=== PATIENT | female | born 1960 | race Caucasian/White ===

== ENCOUNTER 2021-09-20 12:30 | Emergency (ER) | payer MEDICAID ==
[~2021-09-20] VITALS: Ht 154.9 cm; Wt 60.8 kg
[2021-09-20] MEDS ORDERED: FAMOTIDINE 20 MG/2 ML VIAL IVP ONE (13:30)
[2021-09-20] MEDS ORDERED: ONDANSETRON 4 MG/2 ML VIAL IVP ONE (13:30)
[2021-09-20] MEDS ORDERED: NACL 0.9% 1,000 ML IV ONE (13:30)
--- NOTE | 2021-09-20 13:50 | NUR ---
lisette swab done. handed to lab.
--- NOTE | 2021-09-20 13:52 | NUR ---
61 yo f c/o postprandial n/v/d x 1 week. Pt also reports abdominal pain upon oral intake. also with weakness, dizziness and hematemesis. Pt denies cough, fevers, chest pain, shortness of breath, bloody stool, urinary symptoms. in ed, vss. [id number]. no active vomiting at this time. abdomen soft, nontender with active bs. ermd made aware of pt status. pmh: dm, s/p hysterectomy meds: unrecalled nka
[2021-09-20 14:02] LABS: BASOPHILS % (AUTO) 0.7 % (0.0-2.0); EOSINOPHILS % (AUTO) 0.2 % (0.0-4.0); HEMOGLOBIN 14.6 g/dL (12.0-16.0); LYMPHOCYTES # (AUTO) 1.9 K/uL (2.5-16.5); LYMPHOCYTES % (AUTO) 41.5 % (20.5-51.1); MEAN CORPUSCULAR HEMOGLOBIN 33 pg (27-31); MEAN CORPUSCULAR HGB CONC 35 g/dL (33-37); MEAN CORPUSCULAR VOLUME 95.4 fL (80-94); MONOCYTES # (AUTO) 0.4 K/uL (0.8-1.0); MONOCYTES % (AUTO) 8.3 % (1.7-9.3); NEUTROPHILS # (AUTO) 2.2 K/uL (1.8-7.7); NEUTROPHILS % (AUTO) 49.3 % (42.2-75.2); PLATELET COUNT (AUTO) 293 K/uL (140-450); RED CELL DISTRIBUTION WIDTH 13.7 % (11.6-13.7); WHITE BLOOD COUNT (AUTO) 4.5 K/uL (4.8-10.8)
--- NOTE | 2021-09-20 14:05 | NUR ---
pt unable to provide urine specimen at this time. specimen cup left at bedside.
--- NOTE | 2021-09-20 14:17 | NUR ---
PT AMBULATED TO RESTROOM AT THIS TIME. URINE SPECIMEN HANDED TO WESTLEY PARSONS.
[2021-09-20 14:26] LABS: ALBUMIN 3.4 g/dL (3.4-5.0); ANION GAP 14.1 (8-16); CARBON DIOXIDE 26.1 mmol/L (21-32); CREATININE 0.8 mg/dL (0.6-1.3); POTASSIUM 3.2 mmol/L (3.5-5.1); TOTAL BILIRUBIN 0.4 mg/dL (0.0-1.0)
[2021-09-20] MEDS ORDERED: REGENERON ANTIBODY ER ORDER 1 EA MISC MC ONE (15:20)
[2021-09-20 15:35] VITALS: BP 166/73
[2021-09-20] MEDS ORDERED: NON-FORMULARY ITEM 1 EA in NACL 0.9% 100 ML IV ONE (16:00)
[2021-09-20 16:25] LABS: APPEARANCE,URINE CLEAR (CLEAR); BILIRUBIN,URINE NEGATIVE (NEGATIVE); BLOOD, URINE 1+ (NEGATIVE); COLOR,URINE YELLOW (YELLOW); LEUKOCYTE ESTERASE ,URINE NEGATIVE (NEGATIVE); NITRITE, URINE NEGATIVE (NEGATIVE); UGLUCOSE NEGATIVE (NEGATIVE)
[2021-09-20 16:57] LABS: WBC,URINE 0-5 /HPF (0-5)
[2021-09-20 19:11] VITALS: BP 160/85
--- NOTE | 2021-09-20 19:12 | NUR ---
Patient discharged with v/s stable. Written and verbal after care instructions given and explained. Patient verbalized understanding. Ambulatory with steady gait. All questions addressed prior to discharge. Advised to follow up with PMD.
== END 2021-09-20 19:10 | disposition home or self-care (01) ==
LOC: MED 12:30
DX: U07.1 COVID-19 (principal); R11.2 Nausea with vomiting, unspecified; R19.7 Diarrhea, unspecified; E11.9 Type 2 diabetes mellitus without complications; Z90.710 Acquired absence of both cervix and uterus
CPT/HCPCS: 36415; 71045; 80053; 81001; 83605; 83690; 84484; 85025; 87040; 87426; 93005; 96361; 96365; 96375; 99285; J2405; J3490; J7030; Q0092

== ENCOUNTER 2022-04-22 07:11 | Emergency (ER) | payer MEDICAID, OTHER ==
[~2022-04-22] VITALS: Ht 129.5 cm; Wt 64.9 kg
[2022-04-22 07:30] VITALS: BP 187/76
--- NOTE | 2022-04-22 08:14 | NUR ---
PT AMBULATORY TO RESTROOM
--- NOTE | 2022-04-22 08:29 | NUR ---
XRAY AT BEDSIDE
--- NOTE | 2022-04-22 08:42 | NUR ---
62YO FEMALE PT C/O THROBBING 3/10 L EYE PAIN XYESTERDAY. PT STATES INITIAL DISCOMFORT ALONG WITH EPISODES OF NUMBING IN L ARM AND L SIDE OF NECK, DENIES LOSS OF SENSATION. PT L EYE PRESENTS W/ REDDENED SCLERA, NO FOREIGN OBJECT VISIBLE. PERRLA X2. PT ABLE TO MOVE EYE W/ EASE AND DENIES CHANGE IN VISION .DENIES N/V/D, CHEST PAIN , SOB OR INJURY TO EYE OR BODY. PT AAOX4, NO VISIBLE DISTRESS. RSPIRATIONS EVEN AND UNLABORED. MAORI SPEAKING HX: HTN, DIABETES HYPOTHYROID, HDL NKA
[2022-04-22 09:05] LABS: BASOPHILS % (AUTO) 0.5 % (0.0-2.0); EOSINOPHILS # (AUTO) 0.1 K/uL (0-0.4); HEMATOCRIT 41.2 % (36-48); LYMPHOCYTES # (AUTO) 2.7 K/uL (2.5-16.5); LYMPHOCYTES % (AUTO) 31.6 % (20.5-51.1); MEAN CORPUSCULAR HEMOGLOBIN 32 pg (27-31); MEAN CORPUSCULAR HGB CONC 34 g/dL (33-37); MEAN CORPUSCULAR VOLUME 95.7 fL (80-94); MONOCYTES # (AUTO) 0.5 K/uL (0.8-1.0); MONOCYTES % (AUTO) 5.9 % (1.7-9.3); NEUTROPHILS # (AUTO) 5.2 K/uL (1.8-7.7); PLATELET COUNT (AUTO) 326 K/uL (140-450); RED CELL DISTRIBUTION WIDTH 13.3 % (11.6-13.7); WHITE BLOOD COUNT (AUTO) 8.6 K/uL (4.8-10.8)
[2022-04-22 09:24] LABS: ALBUMIN 3.6 g/dL (3.4-5.0); ANION GAP 12.8 (8-16); ASPARTATE AMINOTRANSFERASE 24 U/L (15-37); CARBON DIOXIDE 26.3 mmol/L (21-32); CHLORIDE 105 mmol/L (98-107); CREATININE 0.6 mg/dL (0.6-1.3); GFR ARICAN-AMERICAN 130 mL/min (>90); GLUCOSE 115 mg/dL (74-106); POTASSIUM 3.1 mmol/L (3.5-5.1); SODIUM SERUM 141 mmol/L (136-145); TOTAL BILIRUBIN 0.5 mg/dL (0.0-1.0); UREA NITROGEN, BLOOD 12 mg/dL (7-18)
[2022-04-22] MEDS ORDERED: ERYT5OIN58 OP (09:43)
[2022-04-22 09:52] VITALS: BP 180/73
--- NOTE | 2022-04-22 09:52 | NUR ---
Patient discharged with v/s stable. Written and verbal after care instructions FOR PARESTHESIA AND BACTERIAL CONJUSTIVITIS given and explained. Patient alert, oriented and verbalized understanding of instructions. Ambulatory with steady gait. All questions addressed prior to discharge. ID band removed. Patient advised to follow up with PMD. Rx of ERYTHROMYCIN given. Opportunity to ask questions provided and answered.
--- NOTE | 2022-04-22 10:08 | NUR ---
Chart checked and completed. The patient's care was reviewed and supervised by Dafne Ocasio RN.
== END 2022-04-22 09:52 | disposition home or self-care (01) ==
LOC: MED 07:11
DX: H10.9 Unspecified conjunctivitis (principal); R20.2 Paresthesia of skin; E11.9 Type 2 diabetes mellitus without complications
CPT/HCPCS: 36415; 71045; 80053; 84484; 85025; 93005; 99285

== ENCOUNTER 2022-08-09 08:22 | Emergency (ER) | payer OTHER ==
[~2022-08-09] VITALS: Ht 146.8 cm; Wt 57.7 kg
[~2022-08-09 08:22] MED LIST: ERYT5OIN58 OP
[2022-08-09 08:34] VITALS: BP 164/74
--- NOTE | 2022-08-09 08:39 | NUR ---
PT AMB TO BED 1.
[2022-08-09] MEDS ORDERED: NACL 0.9% 500 ML IV ONE (09:05)
--- NOTE | 2022-08-09 09:08 | NUR ---
SWABS COLLECTED AND WALKED TO LAB.
--- NOTE | 2022-08-09 09:30 | NUR ---
62F presents to ED with c/o left shoulder pain, headache, and dizziness x15 days. Pt reports an intermittent, pulsating like, 8/10 pain to head and left shoulder, dizziness with blurred vision. Pt reports history of DM, HTN, and hyperthyroid, noncompliant with meds for 1 year. Pt denies fevers, chills, N/V/D, denies trauma or injury to left shoulder. Pt reports taking Naprosyn this morning for pain with relief. Pt changed into gown, placed on bedside monitor.
--- NOTE | 2022-08-09 09:46 | NUR ---
Pt ambulated to restroom with steady gait.
[2022-08-09 09:52] LABS: BASOPHILS # (AUTO) 0.1 K/uL (0.00-0.22); BASOPHILS % (AUTO) 0.8 % (0.0-2.0); EOSINOPHILS # (AUTO) 0.1 K/uL (0-0.4); EOSINOPHILS % (AUTO) 1.5 % (0.0-4.0); HEMATOCRIT 45.3 % (36-48); HEMOGLOBIN 15.4 g/dL (12.0-16.0); LYMPHOCYTES # (AUTO) 2.5 K/uL (2.5-16.5); LYMPHOCYTES % (AUTO) 34.6 % (20.5-51.1); MEAN CORPUSCULAR HEMOGLOBIN 33 pg (27-31); MEAN CORPUSCULAR HGB CONC 34 g/dL (33-37); MEAN CORPUSCULAR VOLUME 96.4 fL (80-94); MONOCYTES # (AUTO) 0.4 K/uL (0.8-1.0); MONOCYTES % (AUTO) 5.8 % (1.7-9.3); NEUTROPHILS # (AUTO) 4.2 K/uL (1.8-7.7); NEUTROPHILS % (AUTO) 57.3 % (42.2-75.2); PLATELET COUNT (AUTO) 359 K/uL (140-450); RED CELL DISTRIBUTION WIDTH 13.6 % (11.6-13.7); WHITE BLOOD COUNT (AUTO) 7.3 K/uL (4.8-10.8)
[2022-08-09 10:35] LABS: ALBUMIN 3.7 g/dL (3.4-5.0); ANION GAP 10.6 (8-16); ASPARTATE AMINOTRANSFERASE 36 U/L (15-37); CARBON DIOXIDE 30.6 mmol/L (21-32); CHLORIDE 102 mmol/L (98-107); CREATININE 0.7 mg/dL (0.6-1.3); GFR ARICAN-AMERICAN 109 mL/min (>90); GLUCOSE 202 mg/dL (74-106); POTASSIUM 3.2 mmol/L (3.5-5.1); SODIUM SERUM 140 mmol/L (136-145); TOTAL BILIRUBIN 0.6 mg/dL (0.0-1.0); UREA NITROGEN, BLOOD 19 mg/dL (7-18)
[2022-08-09 10:40] LABS: APPEARANCE,URINE HAZY (CLEAR); BILIRUBIN,URINE NEGATIVE (NEGATIVE); BLOOD, URINE 2+ (NEGATIVE); COLOR,URINE YELLOW (YELLOW); LEUKOCYTE ESTERASE ,URINE 2+ (NEGATIVE); NITRITE, URINE POSITIVE (NEGATIVE); PH,URINE 6.5 (5.0-9.0); UGLUCOSE NEGATIVE (NEGATIVE)
[2022-08-09 10:57] LABS: RBC,URINE 0-5 /HPF (0-5); WBC,URINE 16-25 (MOD) /HPF (0-5)
[2022-08-09] MEDS ORDERED: CEPH-588 PO (11:17)
[2022-08-09] MEDS ORDERED: POTASSIUM CHLORIDE 10 MEQ TABER PO ONE (11:20)
[2022-08-09] MEDS ORDERED: cefTRIAXone 1,000 MG VIAL ONE (11:22)
--- NOTE | 2022-08-09 12:05 | NUR ---
IV removed, catheter intact and site benign. Applied folded 4x4 gauze and tape to stop bleeding.
[2022-08-09 12:12] VITALS: BP 158/81
== END 2022-08-09 12:08 | disposition home or self-care (01) ==
LOC: MED 08:22
DX: N39.0 Urinary tract infection, site not specified (principal); Z20.822 Contact with and (suspected) exposure to COVID-19; E87.6 Hypokalemia; I10 Essential (primary) hypertension
CPT/HCPCS: 36415; 71045; 73030; 80053; 81001; 84484; 85025; 87086; 87426; 87804; 93005; 96365; 99285; J0696; J7030

== ENCOUNTER 2024-01-13 09:26 | Emergency (ER) | payer OTHER ==
[~2024-01-13] VITALS: Ht 142.2 cm; Wt 58.1 kg
[~2024-01-13 09:26] MED LIST changes: +CEPH-588 PO
[2024-01-13 09:42] VITALS: BP 183/79; PULSE 65; RESP 16; TEMP 97.6; O2SAT 98
[2024-01-13 10:41] VITALS: BP 189/81; PULSE 60; RESP 14; TEMP 97.6
[2024-01-13 10:44] VITALS: O2SAT 98
[2024-01-13 10:44] LABS: ALANINE AMINOTRANSFERASE 43 U/L (12-78); ALBUMIN 4.2 g/dL (3.4-5.0); ALKALINE PHOSPHATASE 137 U/L (50-136); ANION GAP 11.4 (8-16); ASPARTATE AMINOTRANSFERASE 23 U/L (15-37); CHLORIDE 104 mmol/L (98-107); CREATININE 0.6 mg/dL (0.6-1.3); GFR ARICAN-AMERICAN 129 mL/min (>90); GFR NON ARICAN-AMERICAN 107 mL/min (>90); GLUCOSE 157 mg/dL (74-106); POTASSIUM 3.4 mmol/L (3.5-5.1); SODIUM SERUM 142 mmol/L (136-145); TOTAL BILIRUBIN 0.5 mg/dL (0.0-1.0); TOTAL PROTEIN, SERUM 7.6 g/dL (6.4-8.2); UREA NITROGEN, BLOOD 12 mg/dL (7-18)
[2024-01-13 11:05] LABS: BASOPHILS % (AUTO) 0.7 % (0.0-2.0); EOSINOPHILS # (AUTO) 0.2 K/uL (0-0.4); EOSINOPHILS % (AUTO) 2.6 % (0.0-4.0); HEMATOCRIT 41.5 % (36-48); HEMOGLOBIN 14.1 g/dL (12.0-16.0); LYMPHOCYTES # (AUTO) 2.9 K/uL (2.5-16.5); LYMPHOCYTES % (AUTO) 42.9 % (20.5-51.1); MEAN CORPUSCULAR HEMOGLOBIN 33 pg (27-31); MEAN CORPUSCULAR HGB CONC 34 g/dL (33-37); MEAN CORPUSCULAR VOLUME 96.7 fL (80-94); MONOCYTES # (AUTO) 0.5 K/uL (0.8-1.0); MONOCYTES % (AUTO) 6.7 % (1.7-9.3); NEUTROPHILS # (AUTO) 3.2 K/uL (1.8-7.7); NEUTROPHILS % (AUTO) 47.1 % (42.2-75.2); PLATELET COUNT (AUTO) 294 K/uL (140-450); RED BLOOD CELL COUNT(AUTO) 4.29 MIL/uL (4.20-5.40); RED CELL DISTRIBUTION WIDTH 13.7 % (11.6-13.7); WHITE BLOOD COUNT (AUTO) 6.9 K/uL (4.8-10.8)
[2024-01-13] MEDS: KETOROLAC 30 MG/ML VIAL IVP ONE (13:00)
[2024-01-13] MEDS: METOCLOPRAMIDE 10 MG/2 ML INJ VIAL IVP ONE (13:13)
[2024-01-13] MEDS ORDERED: LID5T TP (13:23)
== END 2024-01-13 13:25 | disposition home or self-care (01) ==
LOC: MED 09:26
DX: R07.89 Other chest pain (principal); M79.601 Pain in right arm; M54.12 Radiculopathy, cervical region; Z79.899 Other long term (current) drug therapy
CPT/HCPCS: 36415; 70450; 71046; 80053; 84484; 85025; 93005; 96374; 99285; J1885